=== PATIENT | male | born 1975 | race Caucasian/White ===

== ENCOUNTER → 2016-03-13 | Outpatient (CLI) | payer BC ==
--- NOTE | 2016-03-13 19:32 | DX ---
Cervical spine, 2 views Clinical Indication: Follow up fusion. Comparison: February 09, 2016. Findings: Anterior cervical fusion and plates at C5-C6 with interbody disk spacer shows evidence of healing. Previous fusion was performed at C6-C7, which is stable. Alignment is anatomic. The preverte bral soft tissues are within normal limits. Impression: Stable fusion from C5 to C7.
== END ==
LOC: FIMAGING 18:31
PROVIDERS: ATTEND Physician Assistant Surgical
DX: Z98.1 Arthrodesis status (principal)